=== PATIENT | female | born 1960 | race Asian ===

== ENCOUNTER 2017-04-09 09:09 | Emergency (ER) | payer OTHER ==
[~2017-04-09] VITALS: Ht 160 cm; Wt 59.1 kg
[2017-04-09 09:11] VITALS: Ht 160 cm; Wt 59.1 kg
[2017-04-09] MEDS ORDERED: BELLADONNA/PHENOBARBITAL TAB PO STA (09:41)
[2017-04-09] MEDS ORDERED: FAMOTIDINE 20 MG TAB PO STA (09:41)
[2017-04-09] MEDS ORDERED: ONDANSETRON 4 MG INJ IV STA (09:41)
[2017-04-09] MEDS ORDERED: LIDOCAINE/MYLANTA 40 ML BTL PO STA (09:41)
[2017-04-09] MEDS ORDERED: KETOROLAC 15 MG INJ IV STA (09:41)
[2017-04-09] MEDS ORDERED: SOD CHLORIDE 0.9% 1,000 ML IV STA (09:41)
[2017-04-09] MEDS ORDERED: ALPRAZOLAM 0.25 MG TAB PO ONE (10:00)
--- NOTE | 2017-04-09 10:04 | ERA ---
ER Documentation Chief Complaint Date/Time DATE: 04/09/17 TIME: 10:04 Chief Complaint BROUGHTIN VIA EMS FROM HOME DUE TO NAUSEA AND VOMITING HPI 56-year-old woman brought in by EMS for epigastric abdominal pain and vomiting. Symptoms began yesterday shortly after eating a seafood buffet. She denies diarrhea, no fevers or chills, no chest pain or shortness of breath, no headache or blurry vision. Patient was transported here by EMS without further complications. ROS All systems reviewed and are negative except as per history of present illness. Medications Home Meds Active Scripts Famotidine* (Famotidine*) 40 Mg Tablet, 40 MG PO HS, #30 TAB Prov:SHARATH PAK MD 04/09/17 Mag Hydrox/Al Hydrox/Simeth (Maalox Advanced Suspension) 355 Ml Oral.susp, 2 TSP PO TID for PAIN AND/OR INFLAMMATION, #4 OZ Prov:SHARATH PAK MD 04/09/17 Ondansetron Hcl* (Zofran*) 4 Mg Tablet, 4 MG PO Q8H Y for NAUSEA AND/OR VOMITING , #15 TAB Prov:SHARATH PAK MD 04/09/17 PMhx/Soc None History of Surgery: Yes (, HEMHEROID) Anesthesia Reaction: No Hx Neurological Disorder: No Hx Respiratory Disorders: No Hx Cardiac Disorders: Yes (HTN) Hx Psychiatric Problems: No Hx Miscellaneous Medical Probl: Yes (HYPERTHYROID) Hx Alcohol Use: No Hx Substance Use: No Hx Tobacco Use: No Smoking Status: Never smoker FmHx Family History: No diabetes Physical Exam Vitals Vital Signs Date Time Temp Pulse Resp B/P Pulse Ox O2 Delivery O2 Flow Rate FiO2 04/09/17 13:05 98.6 83 16 124/90 99 Room Air 04/09/17 09:11 98.0 99 18 194/100 100 Physical Exam GENERAL: Well-developed, well-nourished, appears dehydrated, nauseous HEENT: Dry mucous membranes, pink conjunctiva, no cervical spine tenderness or step-off deformities, no goiter, no jaundice or icterus, extraocular movements intact without pain. No submandibular induration, and no pharyngeal erythema NEURO: Alert and oriented 3, cranial nerves II through XII intact bilaterally, pupils equal round reactive to light, no focal deficits or facial asymmetry, sensation intact distally Strength 5/5 in upper and lower extremities bilaterally CARDIAC: Tachycardic and regular, no murmurs rubs or gallops LUNGS: Clear bilaterally no wheezing crackles or stridor ABDOMEN: Soft nontender, no guarding, no rigidity, no rebound, no psoas sign no obturator sign. Normoactive bowel sounds SKIN: Warm and dry to touch, no abrasions, contusions, or hematomas, no lacerations, no ecchymosis, no target lesions, and without ulcers EXTREMITIES: No clubbing cyanosis or edema, calves are bilaterally symmetrical, no Homans sign, no popliteal cord sign. Distal pulses equal and bilateral PSYCH: Normal affect without agitation or irritability Result Diagram: 04/09/1791904/09/17919 Results 24 hrs Laboratory Tests Test 04/09/17 09:20 04/09/17 09:26 04/09/17 10:45 White Blood Count 7.010^3/ul Red Blood Count 4.2210^6/ul Hemoglobin 13.0g/dl Hematocrit 38.6% Mean Corpuscular Volume 91.5fl Mean Corpuscular Hemoglobin 30.8pg Mean Corpuscular Hemoglobin Concent 33.7g/dl Red Cell Distribution Width 12.1% Platelet Count 34946^3/UL Mean Platelet Volume 9.1fl Neutrophils % 44.2% Lymphocytes % 43.0% Monocytes % 8.4% Eosinophils % 3.4% Basophils % 0.7% Nucleated Red Blood Cells % 0.0/100WBC Neutrophils # 3.110^3/ul Lymphocytes # 3.010^3/ul Monocytes # 0.610^3/ul Eosinophils # 0.210^3/ul Basophils # 0.110^3/ul Nucleated Red Blood Cells # 0.010^3/ul Sodium Level 145mmol/L Potassium Level 4.0mmol/L Chloride Level 104mmol/L Carbon Dioxide Level 25mmol/L Anion Gap 20 Blood Urea Nitrogen 33mg/dl Creatinine 1.04mg/dl Glucose Level 118mg/dl Calcium Level 9.7mg/dl Total Bilirubin 0.3mg/dl Direct Bilirubin 0.00mg/dl Indirect Bilirubin 0.3mg/dl Aspartate Amino Transf (AST/SGOT) 56IU/L Alanine Aminotransferase (ALT/SGPT) 72IU/L Alkaline Phosphatase 87IU/L Troponin I < 0.012ng/ml Total Protein 8.2g/dl Albumin 4.6g/dl Globulin 3.60g/dl Albumin/Globulin Ratio 1.27 Lipase 126U/L Bedside Glucose 120mg/dL Urine Color STRAW Urine Clarity CLEAR Urine pH 7.0 Urine Specific [place] 1.009 Urine Ketones NEGATIVEmg/dL Urine Nitrite NEGATIVEmg/dL Urine Bilirubin NEGATIVEmg/dL Urine Urobilinogen NEGATIVEmg/dL Urine Leukocyte Esterase NEGATIVELeu/ul Urine Hemoglobin NEGATIVEmg/dL Urine Glucose NEGATIVEmg/dL Urine Total Protein NEGATIVEmg/dl Current Medications Medications (Trade) Dose Ordered Sig/Ernie Route PRN Reason Start Time Stop Time Status Last Admin Dose Admin Sodium Chloride (NS) 1,000 ml @ 1,000 mls/hr Q1H STAT IV 04/09/17 09:41 04/09/17 10:40 DC 04/09/17 09:53 Ondansetron HCl (Zofran Inj) 4 mg ONCE STAT IV 04/09/17 09:41 04/09/17 09:43 DC 04/09/17 09:50 Famotidine (Pepcid) 40 mg ONCE STAT PO 04/09/17 09:41 04/09/17 09:43 DC 04/09/17 09:52 Miscellaneous Medication (Gi Cocktail (2)) 40 ml ONCE STAT PO 04/09/17 09:41 04/09/17 09:43 DC 04/09/17 09:52 Belladonna/ Phenobarbital () 2 tab ONCE STAT PO 04/09/17 09:41 04/09/17 09:43 DC 04/09/17 09:50 Ketorolac Tromethamine (Toradol) 15 mg ONCE STAT IV 04/09/17 09:41 04/09/17 09:43 DC 04/09/17 09:53 Alprazolam (Xanax) 0.5 mg ONCE ONCE PO 04/09/17 10:00 04/09/17 10:01 DC 04/09/17 09:51 Procedures/MDM IV line was established patient was placed on clinical research monitor rhythm strip revealed a sinus tachycardia at 100 bpm with upright P and T waves. Patient was afebrile. EKG performed, read by me revealed a sinus tachycardia at 101 bpm, normal axis, narrow QRS complex, no concerning ST elevations or depressions noted. I administered 1 L normal saline intravenously, alprazolam 0.5 mg p.o., Toradol 15 mg IV, Zofran 4 mg IV, GI cocktail 50 cc p.o., and famotidine 40 mg p.o. with resolution of her symptoms. CBC was unremarkable, electrolytes revealed dehydration with a BUN/creatinine of 33/1, liver function tests revealed mild transaminitis, lipase normal, Troponin negative. Urine analysis was negative for infection. Imaging deferred for now as patient's symptoms completely resolved, her vital signs are normal, she is tolerating p.o., and a repeat abdominal examination remained benign without tenderness, guarding, rigidity, or rebound. I did tell her to return in 8 hours for repeat abdominal examination, reevaluation, possible imaging. Differential diagnoses considered, included but not limited to acute coronary syndrome, pulmonary embolism, aortic dissection, abdominal aortic aneurysm, sepsis, stroke, meningitis, encephalitis, pneumonia, appendicitis, cholecystitis , bowel obstruction, pyelonephritis, nephrolithiasis, cystitis, as well as metabolic, hematologic, and electrolyte abnormalities. As well as abscess, cellulitis, fractures, and dislocations. Patient feels much better at this time, and vital signs are normal, symptoms have improved. I did give strict instructions to return to the ED if symptoms continue or worsen, patient will otherwise follow-up with primary care physician. Patient understood instructions and agreed to plan. Disclaimer: Inadvertent spelling and grammatical errors are likely due to EHR/ dictation software use and do not reflect on the overall quality of patient care. Also, please note that the electronic time recorded on this note does not necessarily reflect the actual time of the patient encounter. Departure Diagnosis: Primary Impression: Food poisoning Qualified Code: T62.91XA - Food poisoning, accidental or unintentional, initial encounter Additional Impressions: Nausea and vomiting Qualified Code: R11.2 - Non-intractable vomiting with nausea, unspecified vomiting type Abdominal pain Qualified Code: R10.13 - Epigastric pain Dehydration Condition: Good SHARATH PAK MD Apr 09, 2017 10:04
[2017-04-09 10:17] LABS: BASOPHIL # 0.1 10^3/ul (0.0-0.1); BASOPHILS % 0.7 % (0.0-2.0); EOSINOPHILS # 0.2 10^3/ul (0.0-0.5); EOSINOPHILS % 3.4 % (0.0-7.0); HEMATOCRIT 38.6 % (37.0-47.0); MEAN CORPUSCULAR HEMOGLOBIN 30.8 pg (29.0-33.0); MEAN CORPUSCULAR HGB CONC 33.7 g/dl (32.0-37.0); MEAN CORPUSCULAR VOLUME 91.5 fl (82.0-101.0); MEAN PLATELET VOLUME 9.1 fl (7.4-10.4); MONOCYTE # 0.6 10^3/ul (0.3-0.9); MONOCYTES % 8.4 % (0.0-11.0); NEUTROPHIL # 3.1 10^3/ul (1.6-7.5); NEUTROPHILS % 44.2 % (39.0-77.0); PLATELET COUNT 259 10^3/UL (140-415); RED BLOOD COUNT 4.22 10^6/ul (4.20-5.40); RED CELL DISTRIBUTION WIDTH 12.1 % (11.5-14.5)
[2017-04-09 10:56] LABS: ALANINE AMINOTRANSFERASE 72 IU/L (13-69); ALBUMIN 4.6 g/dl (3.3-4.9); ALBUMIN/GLOBULIN RATIO 1.27; ALKALINE PHOSPHATASE 87 IU/L (42-121); ANION GAP 20 (8-16); ASPARTATE AMINO TRANSFERASE 56 IU/L (15-46); BILIRUBIN,INDIRECT 0.3 mg/dl (0-1.1); BILIRUBIN,TOTAL 0.3 mg/dl (0.2-1.3); BLOOD UREA NITROGEN 33 mg/dl (7-20); CALCIUM 9.7 mg/dl (8.4-10.2); CARBON DIOXIDE 25 mmol/L (21-31); CHLORIDE 104 mmol/L (97-110); CREATININE 1.04 mg/dl (0.44-1.00); GLUCOSE 118 mg/dl (70-220); SODIUM 145 mmol/L (135-144); TOTAL PROTEIN 8.2 g/dl (6.1-8.1)
[2017-04-09 11:09] LABS: TROPONIN-I < 0.012 ng/ml (0.00-0.12)
[2017-04-09 11:37] LABS: ADD UMIC NO; UR ASCORBIC ACID NEGATIVE (NEGATIVE); UR BILIRUBIN (Dip) NEGATIVE (NEGATIVE); UR BLOOD (Dip) NEGATIVE (NEGATIVE); UR CLARITY CLEAR (CLEAR); UR COLOR STRAW (YELLOW); UR GLUCOSE (Dip) NEGATIVE (NEGATIVE); UR KETONES (Dip) NEGATIVE (NEGATIVE); UR LEUKOCYTE ESTERASE (Dip) NEGATIVE Leu/ul (NEGATIVE); UR NITRITE (Dip) NEGATIVE (NEGATIVE); UR SPECIFIC GRAVITY (Dip) 1.009 (1.003-1.030); UR TOTAL PROTEIN (Dip) NEGATIVE (NEGATIVE); UR UROBILINOGEN (Dip) NEGATIVE (NEGATIVE)
[2017-04-09] MEDS ORDERED: ONDA4TAB8 PO (11:46)
[2017-04-09] MEDS ORDERED: MAG355OR14 PO (11:46)
[2017-04-09] MEDS ORDERED: FAMO40TA52 PO (11:46)
[2017-04-09 13:05] VITALS: BP 124/90; PULSE 83; RESP 16; TEMP 98.6
== END 2017-04-09 13:10 | disposition home or self-care (01) ==
LOC: E/R 09:09
DX: T61.8X1A Toxic effect of other seafood, accidental (unintentional), initial encounter (principal); E03.9 Hypothyroidism, unspecified; I10 Essential (primary) hypertension; R10.13 Epigastric pain; E86.0 Dehydration; R40.2142 Coma scale, eyes open, spontaneous, at arrival to emergency department; R40.2252 Coma scale, best verbal response, oriented, at arrival to emergency department; R40.2362 Coma scale, best motor response, obeys commands, at arrival to emergency department
CPT/HCPCS: 80053; 81003; 82962; 83690; 84484; 85025; 93005; J1885; J2405; J7030; 36415; 96374; 96375